=== PATIENT | male | born 1940 | race Caucasian/White ===

== ENCOUNTER 2016-12-26 12:34 | Inpatient (IN) | payer MEDICARE ==
[~2016-12-26] VITALS: Ht 188 cm; Wt 74.8 kg
[~2016-12-26 12:34] MED LIST: ASPIRIN EC81 MG PO; AZITHROMYCIN250 MG PO; CORDARONE 200M200 MG PO; DIGOX125 MCG PO; DOXEPIN HCL25 MG PO; ELIQUIS5 MG PO; LEVAQUIN750 MG PO; LEVOTHYROXINE100 MCG PO; LOPRESSOR 25 MG25 MG PO; MEDROL DOSEPAK 24 MG PO; MORPHINE SULFAT60 MG PO; PERCOCET 10-321 EACH PO; PROAIR HFA8.5 GM INH; PROZAC20 MG PO; SINEQUAN CAP 2525 MG PO; TRAZODONE HCL150 MG PO; VISTARIL50 MG PO; VITAMIN B-121000 MC1 PO; VITAMIN B-121000 MC3 PO; VITAMIN D50000 UNIT PO; XARELTO20 MG PO
[2016-12-26 13:48] LABS: HEMOGLOBIN 14.4 gm/dl (14.0-17.5); RED BLOOD COUNT 4.79 M/UL (4.20-5.50); WHITE BLOOD COUNT 18.1 K/UL (4.5-11.0)
[2016-12-26 13:49] LABS: BUN/CREATININE RATIO 26 (0-10)
[2016-12-26] MEDS ORDERED: LASIX TAB 20 MG20 MG PO (18:18)
[2016-12-26] MEDS ORDERED: COREG 3.125M3.125 MG PO (18:19)
[2016-12-26] MEDS ORDERED: SERTRALINE HCL100 MG PO (18:19)
[2016-12-26] MEDS ORDERED: OMEPRAZOLE20 M1 PO (18:20)
[2016-12-26] MEDS ORDERED: LIPITOR TAB 2020 MG PO (18:20)
[2016-12-26] MEDS ORDERED: DUREZOL5 ML OP (18:21)
[2016-12-27 03:18] LABS: HEMOGLOBIN 13.4 gm/dl (14.0-17.5); RED BLOOD COUNT 4.44 M/UL (4.20-5.50); WHITE BLOOD COUNT 16.7 K/UL (4.5-11.0)
[2016-12-28 03:29] LABS: HEMOGLOBIN 13.2 gm/dl (14.0-17.5); RED BLOOD COUNT 4.48 M/UL (4.20-5.50)
[2016-12-28 03:31] LABS: WHITE BLOOD COUNT 12.5 K/UL (4.5-11.0)
[2016-12-28 03:48] LABS: BUN/CREATININE RATIO 25 (0-10)
[2016-12-29 03:54] LABS: HEMOGLOBIN 12.3 gm/dl (14.0-17.5); RED BLOOD COUNT 4.21 M/UL (4.20-5.50); WHITE BLOOD COUNT 9.4 K/UL (4.5-11.0)
[2016-12-29 04:34] LABS: BUN/CREATININE RATIO 18 (0-10)
[2016-12-31 04:47] LABS: HEMOGLOBIN 13.1 gm/dl (14.0-17.5); RED BLOOD COUNT 4.43 M/UL (4.20-5.50); WHITE BLOOD COUNT 10.2 K/UL (4.5-11.0)
[2016-12-31 05:14] LABS: BUN/CREATININE RATIO 13 (0-10)
[2017-01-02 05:05] LABS: BUN/CREATININE RATIO 9 (0-10)
[2017-01-03 06:00] LABS: BUN/CREATININE RATIO 11 (0-10)
[2017-01-03 06:09] LABS: HEMOGLOBIN 14.3 gm/dl (14.0-17.5); RED BLOOD COUNT 4.83 M/UL (4.20-5.50); WHITE BLOOD COUNT 7.4 K/UL (4.5-11.0)
[2017-01-03] MEDS ORDERED: CARDIZEM30 MG PO (13:14)
== END 2017-01-03 14:12 | disposition home or self-care (01) | DRG 682 ==
LOC: ER1 12:34 → ZEROF 15:23 → CCU 15:23 → M/S 12-30 08:45
PROVIDERS: Emergency Medicine; Internal Medicine; Internal Medicine Infectious Disease; ADMIT Internal Medicine
DX: N17.0 Acute kidney failure with tubular necrosis (principal); J18.9 Pneumonia, unspecified organism; G92 Toxic encephalopathy; I50.23 Acute on chronic systolic (congestive) heart failure; R44.3 Hallucinations, unspecified; E87.2 Acidosis; I25.10 Atherosclerotic heart disease of native coronary artery without angina pectoris; I48.2 Chronic atrial fibrillation; E03.9 Hypothyroidism, unspecified; I10 Essential (primary) hypertension; K21.9 Gastro-esophageal reflux disease without esophagitis; F32.9 Major depressive disorder, single episode, unspecified; G89.29 Other chronic pain; E87.6 Hypokalemia; E88.09 Other disorders of plasma-protein metabolism, not elsewhere classified; F03.90 Unspecified dementia, unspecified severity, without behavioral disturbance, psychotic disturbance, mood disturbance, and anxiety; I07.1 Rheumatic tricuspid insufficiency; I27.2 Other secondary pulmonary hypertension; Z95.5 Presence of coronary angioplasty implant and graft; Z79.82 Long term (current) use of aspirin; Z79.899 Other long term (current) drug therapy; Z87.891 Personal history of nicotine dependence; Z82.49 Family history of ischemic heart disease and other diseases of the circulatory system
CPT/HCPCS: ECHO; 36415; 70450; 71010; 71020; 80048; 80053; 80162; 80202; 82040; 82607; 82746; 83605; 83735; 83880; 84132; 84443; 84484; 85025; 85027; 86140; 87040; 93005; 93306; 94640; 94664; 97110; 97116; 97530; 97535; 99284; G0480; J0692; J0696; J1940; J2270; J2543; J3370; J7030; J7040; J7050; J7070; Q0162